=== PATIENT | female | born 1960 | race Caucasian/White ===

== ENCOUNTER → 2018-09-12 | Outpatient (CLI) | payer OTHER ==
--- NOTE | 2018-09-12 11:54 | Diagnostic Imaging Report ---
PATIENT HISTORY: PAIN IN RIGHT HIP. TECHNIQUE: Two views of the right hip. COMPARISON: None. FINDINGS: No acute fracture or dislocation is seen in the right hip. Joint spaces are generally preserved. Alignment appears normal. IMPRESSION: No acute osseous abnormality seen in the right hip. Dictated by: Dictated on workstation # [id number]
== END ==
LOC: RAD FS 11:24
PROVIDERS: ATTEND Physician Assistant
DX: M25.551 Pain in right hip (principal)
CPT/HCPCS: 73502

== ENCOUNTER → 2018-09-16 | Outpatient (CLI) | payer OTHER ==
--- NOTE | 2018-09-16 12:37 | Diagnostic Imaging Report ---
INDICATION: Low back pain. TIME OF EXAM: 12:23 p.m. FINDINGS: There is left convexity lumbar scoliotic curvature. Marked demineralization is noted, limiting examination. There is a compression fracture involving the L1 vertebral body. Moderate central and anterior compression is noted. No definite retropulsion is seen. Remaining lumbar vertebrae show normal stature. There is multilevel degenerative disc disease with variable disc space narrowing and marginal spurring. Left iliac stents are noted. IMPRESSION: L1 compression fracture, age indeterminate. MRI could be performed to evaluate acuity. Dictated by: Dictated on workstation # [id number]
== END ==
LOC: RAD FS 12:12
PROVIDERS: ATTEND Physician Assistant
DX: S32.010A Wedge compression fracture of first lumbar vertebra, initial encounter for closed fracture (principal)
CPT/HCPCS: 72100